=== PATIENT | female | born 1950 ===

== ENCOUNTER 2018-05-07 06:54 | Day surgery (SDC) | payer MEDICARE ==
[2018-05-07] MEDS ORDERED: Sodium Chloride 0.9% 1,000 ML IV SCH (07:45)
[2018-05-07] MEDS ORDERED: Propofol 10 mg/ml Inj (20 ML) ONE (08:44)
[2018-05-07 09:42] VITALS: PULSE 72
[2018-05-07 10:02] VITALS: BP 125/80; RESP 16; TEMP 97.7; O2SAT 100
== END 2018-05-07 10:19 | disposition home or self-care (01) ==
LOC: ENDO 06:54
PROVIDERS: ATTEND Specialist
DX: K29.50 Unspecified chronic gastritis without bleeding (principal); B96.81 Helicobacter pylori [H. pylori] as the cause of diseases classified elsewhere; R13.10 Dysphagia, unspecified; R10.13 Epigastric pain; K44.9 Diaphragmatic hernia without obstruction or gangrene; K21.9 Gastro-esophageal reflux disease without esophagitis; E78.00 Pure hypercholesterolemia, unspecified; M06.9 Rheumatoid arthritis, unspecified; Z88.0 Allergy status to penicillin
CPT/HCPCS: 43239; 88305; 88342; J2001; J2704; J7030; J7040